=== PATIENT | female | born 2000 | race Caucasian/White ===

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

== ENCOUNTER → 2022-07-30 18:40 | Observation (INO) ==
[2022-07-30 16:24] LABS: Basophils % 0.2 %; Eosinophils # 0.1 K/mcL (0.0-0.6); Eosinophils % 0.4 %; Hematocrit 35.2 % (35.3-44.9); Hemoglobin 11.5 g/dL (11.5-15.4); Immature Granulocytes % 0.5 % (0-4); Lymphocytes # 1.8 K/mcL (0.6-4.6); Mean Corpuscular HGB Conc 32.7 g/dL (31.6-35.5); Mean Corpuscular Hemoglobin 27.1 pg (28.0-33.3); Mean Platelet Volume 10.3 fL (9.4-12.4); Monocytes # 0.6 K/mcL (0.0-1.3); Monocytes % 4.7 %; Neutrophils # 10.3 K/mcL (1.6-8.9); Platelet Count 275 K/mcL (140-400); Red Blood Count 4.24 M/mcL (3.82-4.97); Red Cell Distribution Width 13.9 % (11.5-14.5); Segmented Neutrophils % 80.2 %; White Blood Count 12.9 K/mcL (4.3-11.1)
[2022-07-30 16:26] LABS: Protein/Creatinine Ratio,Urine 0.08 mg/mg (0.00-0.20)
[2022-07-30 16:42] LABS: Alanine Aminotransferase 5 Units/L (7-52); Aspartate Amino Transferase 12 Units/L (13-39); BUN/Creatinine Ratio 11 (6-26); Blood Urea Nitrogen 6 mg/dL (6-20); Lactate Dehydrogenase 160 Units/L (140-271)
== END | disposition home or self-care (01) ==
LOC: 1NENULAB
PROVIDERS: ADMIT Student in an Organized Health Care Education/Training Program; ATTEND Student in an Organized Health Care Education/Training Program

== ENCOUNTER 2022-08-03 15:29 | Inpatient (IN) ==
[~2022-08-03 15:29] MED LIST changes: -*HR* FentaNYL (PF) 100 MCG/2 ML VIAL IVP PRN; +*HR* Nalbuphine 10 MG/ML AMPUL IV PRN; -Azithromycin 500 MG in 0.9 % Sodium Chloride 250 ML IVPB ONE; -Lidocaine 1% 20 ML MDV INFILT PRN; -Penicillin G Potassium 5,000,000 UNIT in 0.9 % Sodium Chloride Mini Bag 100 ML IVPB ONE
[2022-08-03 16:36] LABS: Basophils % 0.2 %; Eosinophils % 0.3 %; Hematocrit 35.5 % (35.3-44.9); Hemoglobin 11.5 g/dL (11.5-15.4); Immature Granulocytes % 0.4 % (0-4); Lymphocytes # 1.7 K/mcL (0.6-4.6); Lymphocytes % 12.6 %; Mean Corpuscular HGB Conc 32.4 g/dL (31.6-35.5); Mean Corpuscular Hemoglobin 26.6 pg (28.0-33.3); Mean Platelet Volume 10.6 fL (9.4-12.4); Monocytes # 0.6 K/mcL (0.0-1.3); Monocytes % 4.1 %; Platelet Count 314 K/mcL (140-400); Red Blood Count 4.33 M/mcL (3.82-4.97); Red Cell Distribution Width 13.9 % (11.5-14.5); Segmented Neutrophils % 82.4 %; White Blood Count 13.4 K/mcL (4.3-11.1)
[2022-08-03 16:37] LABS: Amphetamine Screen,Urine Negative ng/mL (Cutoff=1000); Barbiturate Screen,Urine Negative ng/mL (Cutoff=200); Benzodiazepines Screen,Urine Negative ng/mL (Cutoff=200); Cannabinoid Screen,Urine Negative ng/mL (Cutoff = 50); Cocaine Screen,Urine Negative ng/mL (Cutoff= 300); Creatinine,Urine 203 mg/dL; Opiate Screen,Urine Negative ng/mL (Cutoff=300); Phencyclidine Screen,Urine Negative ng/mL (Cutoff=25); Protein/Creatinine Ratio,Urine 0.26 mg/mg (0.00-0.20)
[2022-08-03 16:57] LABS: Alanine Aminotransferase 6 Units/L (7-52); Aspartate Amino Transferase 16 Units/L (13-39); BUN/Creatinine Ratio 11 (6-26); Blood Urea Nitrogen 7 mg/dL (6-20); Lactate Dehydrogenase 150 Units/L (140-271); Uric Acid 6.4 mg/dL (2.3-7.6)
[2022-08-03] MEDS ORDERED: Ringers Solution, Lactated 1,000 ML ONE (22:56)
[2022-08-04] MEDS ORDERED: miSOPROStoL 25 MCG TABLET PO SCH
[2022-08-04] MEDS ORDERED: Oxytocin 30 UNIT/503 ML BAG IVC ONE (03:34)
[2022-08-04] MEDS ORDERED: Oxytocin 30 UNIT/503 ML BAG IVC SCH ×2 (03:45→14:13)
[2022-08-04] MEDS ORDERED: Epidural Premix (fent/bupiv) 110 ML EP SCH (07:00)
[2022-08-04] MEDS ORDERED: EPHEDrine 50 MG/ML VIAL IVP PRN (07:00)
[2022-08-04] MEDS ORDERED: Ringers Solution, Lactated 1,000 ML ONE (07:34)
[2022-08-04] MEDS ORDERED: Ropivacaine/PF 0.2% 20 ML VIAL EP ONE (07:51)
[2022-08-04] MEDS ORDERED: *HR* FentaNYL (PF) 100 MCG/2 ML VIAL EP ONE (07:51)
[2022-08-04] MEDS ORDERED: Prenatal Vit/FA 1 EACH TABLET PO SCH (09:00)
[2022-08-04] MEDS: Ringers Solution, Lactated 1,000 ML IVC SCH ×2 (09:15→09:56)
[2022-08-04] MEDS ORDERED: *HR* FentaNYL (PF) 100 MCG/2 ML VIAL ONE (09:40)
[2022-08-04] MEDS ORDERED: Ropivacaine/PF 0.2% 20 ML VIAL ONE (09:40)
[2022-08-04] MEDS ORDERED: Benzocaine/Menthol 56 GM AEROSOL SPRAY TP PRN (14:13)
[2022-08-04] MEDS ORDERED: Ondansetron ODT 4 MG TAB.RAPDIS SL PRN (14:13)
[2022-08-04] MEDS ORDERED: Lanolin 7 G OINT...G. TP PRN (14:13)
[2022-08-04] MEDS: Acetaminophen 325 MG TABLET PO SCH ×2 (14:20→23:18)
[2022-08-04] MEDS: Ibuprofen 600 MG TABLET PO SCH ×2 (14:20→23:19)
[2022-08-04 22:06] VITALS: O2SAT 98
[2022-08-05 03:17] LABS: Basophils % 0.2 %; Eosinophils # 0.1 K/mcL (0.0-0.6); Eosinophils % 0.6 %; Hematocrit 29.6 % (35.3-44.9); Immature Granulocytes % 0.4 % (0-4); Lymphocytes # 2.2 K/mcL (0.6-4.6); Lymphocytes % 20.4 %; Mean Corpuscular HGB Conc 32.8 g/dL (31.6-35.5); Mean Corpuscular Hemoglobin 27.2 pg (28.0-33.3); Mean Corpuscular Volume 83.1 fL (83.0-100.0); Mean Platelet Volume 10.6 fL (9.4-12.4); Monocytes # 0.9 K/mcL (0.0-1.3); Monocytes % 7.9 %; Neutrophils # 7.6 K/mcL (1.6-8.9); Platelet Count 248 K/mcL (140-400); Red Blood Count 3.56 M/mcL (3.82-4.97); Red Cell Distribution Width 14.1 % (11.5-14.5); Segmented Neutrophils % 70.5 %; White Blood Count 10.7 K/mcL (4.3-11.1)
[2022-08-05 03:18] LABS: Hemoglobin 9.7 g/dL (11.5-15.4)
[2022-08-05 03:39] VITALS: TEMP 98.3
[2022-08-05] MEDS: Acetaminophen 325 MG TABLET PO SCH ×2 (05:20→09:20)
[2022-08-05] MEDS: Ibuprofen 600 MG TABLET PO SCH ×2 (05:20→09:20)
[2022-08-05 06:56] VITALS: BP 120/71; PULSE 62
[2022-08-05] MEDS ORDERED: Prenatal Vit/FA 1 EACH TABLET PO SCH (09:00)
== END 2022-08-05 15:23 | disposition home or self-care (01) | DRG 560 ==
LOC: 1NENULAB → 1NENUOBS 08-04 14:12
PROVIDERS: ADMIT Student in an Organized Health Care Education/Training Program; ATTEND Student in an Organized Health Care Education/Training Program